=== PATIENT | male | born 1980 | race Caucasian/White ===

== ENCOUNTER 2019-05-20 20:03 | Emergency (ER) | payer SELFPAY ==
[2019-05-20 20:58] LABS: ABSOLUTE EOSINOPHILS # (AUTO) 0.1 10^3/uL (0.0-0.6); TOTAL CELLS COUNTED % (AUTO) 100 %
[2019-05-20 21:04] LABS: ALBUMIN 4.9 g/dL (3.5-5.0); ALKALINE PHOSPHATASE 63 U/L (38-126); ANION GAP 10 (5-19); ASPARTATE AMINO TRANSFERASE 60 U/L (17-59); BILIRUBIN,DIRECT 0.1 mg/dL (0.0-0.4); BILIRUBIN,TOTAL 0.8 mg/dL (0.2-1.3); BLOOD UREA NITROGEN 15 mg/dL (7-20); CALCIUM 9.7 mg/dL (8.4-10.2); CARBON DIOXIDE 26 mmol/L (22-30); CHLORIDE 100 mmol/L (98-107); GLUCOSE 109 mg/dL (75-110); POTASSIUM 3.7 mmol/L (3.6-5.0); TOTAL PROTEIN 8.2 g/dL (6.3-8.2)
[2019-05-20 21:06] LABS: ABSOLUTE LYMPHOCYTES (AUTO) 1.3 10^3/uL (0.5-4.7); ABSOLUTE NEUT (AUTO) 6.7 10^3/uL (1.7-8.2); BASOPHILS % (AUTO) 0.5 % (0-2); EOSINOPHILS % (AUTO) 1.3 % (0-6); HEMATOCRIT 43.8 % (37.9-51.0); HEMOGLOBIN 15.4 g/dL (13.5-17.0); LYMPHOCYTES % (AUTO) 14.5 % (13-45); MEAN CORPUSCULAR HGB CONC 35.2 g/dL (32.0-36.0); MEAN CORPUSCULAR VOLUME 88 fl (80-97); MONOCYTES % (AUTO) 11.1 % (3-13); PLATELET COUNT 303 10^3/uL (150-450); RED BLOOD COUNT 4.97 10^6/uL (4.35-5.55); RED CELL DISTRIBUTION WIDTH 13.4 % (11.5-14.0); SEGMENTED NEUTROPHILS % (AUTO) 72.6 % (42-78); WHITE BLOOD COUNT 9.2 10^3/uL (4.0-10.5)
--- NOTE | 2019-05-20 21:29 | RADIOLOGY REPORT (SQ) ---
EXAM DESCRIPTION: [facility]: XR CHEST 1 VIEW CLINICAL HISTORY: 38 years Male; shortness of breath; COMPARISON: None. FINDINGS: Lungs: Lungs are clear, with no focal infiltrate, pneumothorax, or pleural effusion. Mediastinum: Mediastinum is within normal limits for this positioning. Bones: Bony structures are unremarkable. IMPRESSION: 1. No acute pulmonary findings.
--- NOTE | 2019-05-20 22:30 | EKG REPORT ---
SEVERITY:- NORMAL ECG - SINUS RHYTHM : Confirmed by: Cristine Rogers MD 20-May-2019 22:29:06
--- NOTE | 2019-05-20 23:14 | ER Document Report ---
ED General - General Chief Complaint: Shortness Of Breath Stated Complaint: SHORTNESS OF BREATH Time Seen by Provider: 05/20/19 21:39 Primary Care Provider: SHIRA STEVENSON MD [ACTIVE STAFF] - Follow up as needed NICK BECKHAM MD [ACTIVE PROVISIONAL STAFF] - Follow up as needed Mode of Arrival: Ambulatory Information source: Patient Notes: Otherwise healthy 38-year-old male presenting to the emergency department chief complaint of palpitations. Patient reports palpitations started at around 11:00 this morning, he also reports associated sharp stabbing chest pain. He states the pain has gone away. He denies any other symptoms. He states he lifted his sports watch showed his heart rate fluctuating from the 40s up to the 90s. He states it felt like he was going to pass out. He denies ever having this happen in the past, denies smoking cigarettes but does use a vape. He does not use caffeine or any stimulants. - Related Data Allergies/Adverse Reactions: promethazine [From Phenergan] Allergy (Verified 05/20/19 20:17) Home Medications: Albuterol. Clindamycin Past Medical History - General Information source: Patient - Social History Smoking Status: Current Every Day Smoker Frequency of alcohol use: Occasional Drug Abuse: None Family History: None Patient has suicidal ideation: No Patient has homicidal ideation: No Pulmonary Medical History: Reports: Hx Asthma Surgical Hx: Negative - Immunizations Immunizations up to date: Yes Review of Systems - Review of Systems Cardiovascular: Chest pain, Palpitations -: Yes All other systems reviewed and negative Physical Exam - Vital signs Vitals: Resp BP Pulse Ox 14 137/99 H 99 05/20/19 20:08 05/20/19 20:08 05/20/19 20:08 - Notes Notes: PHYSICAL EXAMINATION: GENERAL: Well-appearing, well-nourished and in no acute distress. HEAD: Atraumatic, normocephalic. EYES: Pupils equal round and reactive to light, extraocular movements intact, sclera anicteric, conjunctiva are normal. ENT: Nares patent, oropharynx clear without exudates. Moist mucous membranes. NECK: Normal range of motion, supple without lymphadenopathy LUNGS: Breath sounds clear to auscultation bilaterally and equal. No wheezes rales or rhonchi. HEART: Regular rate and rhythm without murmurs ABDOMEN: Soft, nontender, nondistended abdomen. No guarding, no rebound. No masses appreciated. Musculoskeletal: Normal range of motion, no pitting or edema. No cyanosis. NEUROLOGICAL: Cranial nerves grossly intact. Normal speech, normal gait. Normal sensory, motor exams PSYCH: Normal mood, normal affect. SKIN: Warm, Dry, normal turgor, no rashes or lesions noted. Course - Re-evaluation Re-evalutation: Patient's work-up today has been unremarkable. Chest x-ray with no cardiomegaly or acute infiltrates. EKG shows a sinus rhythm, normal rate, no ST segment elevation or depression to suggest ischemia. 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 Lab work-up is negative to include 2 troponins. Patient will be discharged home with contact information for cardiology for consideration of Holter monitor. - Vital Signs Vital signs: Temp Pulse Resp BP Pulse Ox 98.5 F 88 18 139/99 H 100 05/20/19 20:12 05/20/19 20:12 05/20/19 20:12 05/20/19 20:12 05/20/19 20:12 - Laboratory Result Diagrams: 05/20/19 20:30 05/20/19 20:30 Laboratory results interpreted by me: 05/20/19 20:30 Sodium 136.0 L AST 60 H Discharge - Discharge Clinical Impression: Palpitations Condition: Stable Disposition: HOME, SELF-CARE Additional Instructions: Your work-up here in the emergency department today was reassuring. As d iscussed please follow-up with cardiology for consideration of a Holter monitor. Return to the emergency department with any new or worsening symptoms. Referrals: SHIRA STEVENSON MD [ACTIVE STAFF] - Follow up as needed NICK BECKHAM MD [ACTIVE PROVISIONAL STAFF] - Follow up as needed
[2019-05-21 00:04] VITALS: BP 141/95
== END 2019-05-20 23:51 | disposition home or self-care (01) ==
LOC: ER 20:03
DX: R00.2 Palpitations (principal); R07.9 Chest pain, unspecified; J45.909 Unspecified asthma, uncomplicated; F17.290 Nicotine dependence, other tobacco product, uncomplicated; Z79.899 Other long term (current) drug therapy; Z79.2 Long term (current) use of antibiotics
CPT/HCPCS: 36415; 71045; 80053; 84484; 85025; 93005; 93010; 99285

== ENCOUNTER → 2019-05-28 | Outpatient (CLI) | payer BC ==
--- NOTE | 2019-05-28 18:48 | XCELERA REPORT ---
[address] [address] Transthoracic Echocardiogram Report Name: SOLEDAD CHAMBERS Age: 38 yrs Gender: Male : 1980 Patient Status: Outpatient Patient Location: RAD Study Date: 05/28/2019 02:05 PM History: Palpitations Height: 69 in Weight: 190 lb BSA: 2.0 m2 Procedure: A complete two-dimensional transthoracic echocardiogram was performed (2D, M-mode, spectral and color flow Doppler). The study was technically adequate with some images being suboptimal in quality. Reason For Study: DIZZINESS AND PALPITATIONS Previous Evaluation: No previous studies were available. History: Palpitations Dizziness. Ordering Physician: SHIRA HERMOSILLO Performed By: Surinder Ashford Interpretation Summary Left ventricular systolic function is normal. The Ejection Fraction estimate is 55-60% The right ventricle is normal in size and function. There is no mitral regurgitation noted. There is no aortic valve stenosis There is a trace amount of tricuspid regurgitation There is no pericardial effusion. MMode/2D Measurements & Calculations RVDd: 3.3 cm LVIDd: 5.1 cm FS: 35.9 % Ao root diam: IVSd: 0.98 cm LVIDs: 3.3 cm EDV(Teich): 3.4 cm LVPWd: 1.0 cm 124.5 ml Ao root area: ESV(Teich): 9.1 cm2 43.4 ml LA dimension: EF(Teich): 65.2 % 3.6 cm LVLd ap4: 8.4 cm SV(MOD-sp4): 64.0 ml EDV(MOD-sp4): 115.0 ml LVLs ap4: 7.0 cm ESV(MOD-sp4): 51.0 ml EF(MOD-sp4): 55.7 % Doppler Measurements & Calculations MV E max heraclio: MV P1/2t max heraclio: Ao V2 max: LV V1 max P.5 cm/sec 70.6 cm/sec 109.1 cm/sec 3.1 mmHg MV A max heraclio: MV P1/2t: 60.5 msec Ao max P.8 mmHg LV V1 max: 47.2 cm/sec MVA(P1/2t): 3.6 cm2 87.9 cm/sec MV E/A: 1.3 MV dec slope: 341.6 cm/sec2 MV dec time: 0.21 sec PA V2 max: TR max heraclio: MV P1/2t-pr_phl: 88.4 cm/sec 233.5 cm/sec 60.5 msec PA max PG: TR max P.8 mmHg 3.1 mmHg Left Ventricle The left ventricle is normal in size. There is normal left ventricular wall thickness. Left ventricular systolic function is normal. The Ejection Fraction estimate is 55-60%. The transmitral spectral Doppler flow pattern is normal for age. Spectral Doppler of the mitral valve shows a normal E/A wave ratio. Doppler measurements suggest normal left ventricular diastolic function. No regional wall motion abnormalities noted. Right Ventricle The right ventricle is normal in size and function. Atria The right atrium is normal. The left atrial size is normal. Mitral Valve The mitral valve is grossly normal. There is no mitral regurgitation noted. Aortic Valve The aortic valve is normal in structure and function. The aortic valve is trileaflet. The aortic valve opens well. There is no aortic valve stenosis. No aortic regurgitation is present. Tricuspid Valve The tricuspid valve is normal in structure and function. There is no tricuspid stenosis. There is a trace amount of tricuspid regurgitation. Tricuspid regurgitation jet envelope not well defined to measure RV systolic pressure accurately. Doppler findings do not suggest pulmonary hypertension. Pulmonic Valve The pulmonic valve is normal in structure and function. There is no pulmonic valvular regurgitation. Great Vessels The aortic root is normal size. The inferior vena cava appeared normal and decreased > 50% with respiration (RAP 5-10 mmHg). Effusions There is no pericardial effusion. : SHIRA HERMOSILLO Anil
== END ==
LOC: RAD 13:42
PROVIDERS: ATTEND Internal Medicine
DX: R42 Dizziness and giddiness (principal); R00.2 Palpitations
CPT/HCPCS: 93306